=== PATIENT | male | born 1955 | race Caucasian/White ===

== ENCOUNTER → 2017-09-14 | Outpatient (CLI) | payer BC ==
--- NOTE | 2017-09-14 12:37 | CT ---
EXAMINATION TYPE: CT abdomen pelvis w con DATE OF EXAM: 09/14/2017 COMPARISON: CT abdomen pelvis 11/30/2012, 03/12/2010 HISTORY: Pelvic pain with bowel changes CT DLP: 2437.2 mGycm Automated exposure control for dose reduction was used. TECHNIQUE: Helical acquisition of images from the lung bases through the pelvis have been completed. CONTRAST: Performed with Oral Contrast and with IV Contrast, patient injected with 100 mL of Isovue 300. FINDINGS: Small hiatal hernia again noted. LUNG BASES: Some mild scarring or atelectasis is suspected in the left lower lobe. AORTA: No significant abnormality is appreciated. LIVER/GB: Liver shows low attenuation likely due to hepatic steatosis, hypodense focus adjacent to th e inferior vena cava somewhat less conspicuous, and gallbladder is normal. PANCREAS: No significant abnormality is seen. SPLEEN: No significant abnormality is seen. ADRENALS: Some mild nodularity the right adrenal gland is stable and likely represents adenoma. Left adrenal is stable. KIDNEYS: No significant abnormality is seen. REPRODUCTIVE ORGANS: No significant abnormality is seen BOWEL: Extensive diverticular changes noted within the sigmoid colon. Suspect postop changes to the left groin, patient has history of hernia repair, some local inflammatory change appears asymmetric, correlate for appropriate surgical history. Colonic interposition noted anterior to the liver. Append ix is normal. Question some mild nonspecific thickening of the ileum. FREE AIR: No Free Air visible. ASCITES: None visible. PELVIC ADENOPATHY: None visualized. RETROPERITONEAL ADENOPATHY: No Retroperitoneal Adenopathy visible. URINARY BLADDER: No significant abnormality is seen. OSSEOUS STRUCTURES: Degenerative disc changes are noted in the visualized spine, there is associated facet arthropathy present, possible spinal stenosis L4-5. IMPRESSION: DIVERTICULOSIS. QUESTION SOME MILD THICKENING OF THE ILEUM. POSTOP CHANGES DESCRIBED, CORRELATE. A dditional findings above.
== END ==
LOC: RADCTMAIN 09:28
PROVIDERS: ATTEND Internal Medicine
DX: K57.30 Diverticulosis of large intestine without perforation or abscess without bleeding (principal)
CPT/HCPCS: 74177; Q9967

== ENCOUNTER 2017-09-28 12:52 | Day surgery (SDC) | payer BC ==
[2017-09-24 10:16] VITALS: BMI 34.9
[~2017-09-28 12:52] MED LIST: LACTATED RINGERS 1,000 ML IV SCH
[2017-09-28 13:45] VITALS: TEMP 97.5
[2017-09-28] MEDS ORDERED: LIDOCAINE 1% 20 ML VIAL (10MG/ML) FOR IV START INTRADERMA ONE (13:48)
[2017-09-28] MEDS ORDERED: PROPOFOL 10 MG/ML 20 ML VIAL IV ONE (14:18)
[2017-09-28] MEDS ORDERED: LIDOCAINE 1% INJ 10MG/ML (20 ML MDV) ONE (14:18)
[2017-09-28] MEDS ORDERED: IV FLUID CONTINUATION 1,000 ML IV ONE ×2 (14:53)
--- NOTE | 2017-09-28 14:54 | P.PCN ---
Date of Procedure: 09/28/17 Procedure(s) Performed: Procedure: Total colonoscopy with polypectomy. Preoperative diagnosis: Change in bowel habits and history of polyps. Postoperative diagnosis: 1. Rectal polyp close to the rectosigmoid junction snared but no large polyps or cancer. 2. Mild sigmoid diverticulosis with no evidence of acute diverticulitis, strictures, polyps or cancer. Preparation: HalfLytely prep. Sedation: Was provided by anesthesia. Brief clinical history: The patient is an 61-year-old male who is referred for this evaluation because of change in bowel habits and difficulties with his bowel movements. He has history of polyps and his last colonoscopy was more than 10 years ago.. Procedure: With the patient on his left lateral decubitus position and after informed consent and adequate sedation, the perianal area was inspected and it did not show any fissures or fistulas. There were no masses felt on digital rectal examination. The Olympus CFQ 160L video colonoscope was then inserted in the rectum in the usual fashion and advanced to the cecum. There were few diverticular orifices seen scattered in the sigmoid but I saw no evidence of acute diverticulitis or strictures. There was a pedunculated 1.5-2 cm rectal polyp close to the rectosigmoid junction which I snared and retrieved by suctioning it to the tip of the endoscope and withdrawing the endoscope. No large polyps or cancer were seen or any obstruction. I retroflexed the endoscope in the rectum before the endoscope was withdrawn. The patient tolerated the procedure well. Plan: The patient was reassured. Discussed dietary measures. He will follow- up with you as planned and further plans can be made based on his course. I recommended repeat exam in 3-5 years.
[2017-09-28 14:55] VITALS: RESP 18
[2017-09-28 15:12] VITALS: BP 138/86; PULSE 51
== END 2017-09-28 15:39 | disposition home or self-care (01) ==
LOC: ORWHC2ENDO 12:52
DX: D12.8 Benign neoplasm of rectum (principal); R19.4 Change in bowel habit; K57.30 Diverticulosis of large intestine without perforation or abscess without bleeding; J45.909 Unspecified asthma, uncomplicated; Z86.010 Personal history of colon polyps; Z79.899 Other long term (current) drug therapy
CPT/HCPCS: 88305; 45385; J2001; J2704

== ENCOUNTER 2019-02-22 01:36 | Emergency (ER) | payer BC, OTHER ==
[2019-02-22 01:46] VITALS: BP 173/84; PULSE 82; RESP 20; TEMP 98.1
== END 2019-02-22 04:15 | disposition home or self-care (01) ==
LOC: EC 01:36
DX: Z02.9 Encounter for administrative examinations, unspecified (principal)

== ENCOUNTER 2022-10-22 07:43 | Day surgery (SDC) | payer BC, MEDICARE ==
[2022-10-21 10:12] VITALS: BMI 33.6
[2022-10-22] MEDS ORDERED: LACTATED RINGERS 1,000 ML IV SCH (08:03)
[2022-10-22] MEDS ORDERED: LIDOCAINE 1% (10MG/ML) FOR IV START INTRADERMA PRN (08:03)
[2022-10-22 08:14] VITALS: RESP 16; TEMP 98
[2022-10-22 08:31] LABS: Glucose,Whole Blood 118 mg/dL (70-110)
[2022-10-22] MEDS ORDERED: LIDOCAINE 2% INJ 20 MG/ML (2 ML VIAL) ONE (08:50)
[2022-10-22] MEDS ORDERED: PROPOFOL 10 MG/ML 20 ML VIAL IV ONE (08:50)
--- NOTE | 2022-10-22 09:06 | P.PCN ---
Date of Procedure: 10/22/22 Procedure(s) Performed: BRIEF HISTORY: Patient is a 67-year-old pleasant white male scheduled for an elective colonoscopy as a part of evaluation of prior history of colon polyps. His last coloscopy was 5 years ago. PROCEDURE PERFORMED: Colonoscopy. PREOPERATIVE DIAGNOSIS: history of colon polyps IV sedation per Anesthesia. PROCEDURE: After informed consent was obtained, the patient, was brought into the endoscopy unit. IV sedation was administered by Anesthesia under continuous monitoring. Digital rectal examination was normal. Initially the Olympus CF-160 flexible video colonoscope was then inserted in the rectum, gradually advanced into the cecum without any difficulty. Careful examination was performed as the scope was gradually being withdrawn. Ileocecal valve and the appendiceal orifice were visualized and appeared normal. Prep was excellent. Mucosa of the cecum, ascending colon, transverse colon, descending colon, sigmoid colon, and rectum appeared normal.scattered sigmoid diverticulosis. Retroflexion was performed in the rectum and no lesions were seen. The patient tolerated the procedure well. IMPRESSION: Normal-appearing colon from rectum to cecum with no evidence of colorectal neoplasia. scattered sigmoid diverticulosis. RECOMMENDATIONS: Findings of this examination were discussed with the patient as well as his family. He was advised to have a repeat screening colonoscopy in 10 years.
[2022-10-22 09:35] VITALS: BP 145/77; PULSE 58
== END 2022-10-22 09:47 | disposition home or self-care (01) ==
LOC: ORWHC2ENDO 07:43
PROVIDERS: ATTEND Internal Medicine Gastroenterology
DX: Z12.11 Encounter for screening for malignant neoplasm of colon (principal); K57.30 Diverticulosis of large intestine without perforation or abscess without bleeding; E11.9 Type 2 diabetes mellitus without complications; J45.909 Unspecified asthma, uncomplicated; Z79.84 Long term (current) use of oral hypoglycemic drugs; Z86.010 Personal history of colon polyps; Z79.51 Long term (current) use of inhaled steroids
CPT/HCPCS: 45378; J2704; J2001